=== PATIENT | female | born 1990 | race American Indian/Alaskan Native ===

== ENCOUNTER 2017-07-03 11:56 | Emergency (ER) | payer SELFPAY ==
[2017-07-03 12:21] VITALS: BP 113/64
[2017-07-03] MEDS ORDERED: MOTRIN PO ONE (14:27)
--- NOTE | 2017-07-03 19:23 | Emergency Department Report ---
Entered by EARLE SOLANO, acting as scribe for NGOC VUONG PAC. ED ENT HPI - General Chief complaint: Dental/Oral Stated complaint: LEFT JAW SWELLING Time Seen by Provider: 07/03/17 14:11 Source: patient Mode of arrival: Ambulatory Limitations: No Limitations - History of Present Illness Initial comments: 26 year old female with no significant PMHx presents to ED with c/o left sided jaw pain for 1 week, symptoms worsen this morning. Patient states she took Ibuprofen last night with relief, but symptoms were worse this morning. Patient states it feels like she chipped her tooth. Patient rates pain a 9/10 in severity and describes pain as tight. Patient reports swelling and chills, but denies left arm pain, numbness, tingling, fever, pus/drainage, difficulty breathing or tongue swelling. No cardiac or pulmonary symptoms per patient. Patient denies recent visit to the dentist. LMP: 06/02/17. NKDA. ROGERS complaint: tooth pain (left jaw pain), other -: week(s) (1) Location: other (left jaw, lower ) Severity: severe Severity scale (0 -10): 9 Quality: aching Consistency: constant Improves with: none Worsens with: position, movement Associated Symptoms: gum swelling, toothache. denies: fever, cough, pain with swallowing, sore throat, discharge from ear, rhinorrhea - Related Data Previous Rx's Medication Instructions Recorded Last Taken Type Amoxicillin/K Clav Tab [Augmentin 1 tab PO Q12HR #20 tab 07/03/17 Unknown Rx 875 mg] Ibuprofen [Motrin 800 MG tab] 800 mg PO Q8HR PRN #15 tablet 07/03/17 Unknown Rx Allergies Allergy/AdvReac Type Severity Reaction Status Date / Time No Known Allergies Allergy Unverified 07/03/17 12:21 ED Dental HPI - General Chief complaint: Dental/Oral Stated complaint: LEFT JAW SWELLING Source: patient Mode of arrival: Ambulatory Limitations: No Limitations - History of Present Illness complaint: tooth pain -: Gradual, week(s) Severity: moderate Quality: sharp Consistency: constant Improves with: NSAID Worsens with: none Context- Dental: history of dental caries, poor dental care - Related Data Previous Rx's Medication Instructions Recorded Last Taken Type Amoxicillin/K Clav Tab [Augmentin 1 tab PO Q12HR #20 tab 07/03/17 Unknown Rx 875 mg] Ibuprofen [Motrin 800 MG tab] 800 mg PO Q8HR PRN #15 tablet 07/03/17 Unknown Rx Allergies Allergy/AdvReac Type Severity Reaction Status Date / Time No Known Allergies Allergy Unverified 07/03/17 12:21 ED Review of Systems Comment: All other systems reviewed and negative Constitutional: denies: chills, fever, weakness Eyes: denies: eye pain, eye discharge, vision change ENT: dental pain. denies: ear pain, throat pain Respiratory: denies: cough, shortness of breath, wheezing Cardiovascular: denies: chest pain, palpitations Gastrointestinal: denies: abdominal pain, nausea, vomiting, diarrhea Musculoskeletal: denies: back pain, joint swelling, arthralgia Skin: denies: rash, lesions Neurological: denies: headache, weakness, numbness, paresthesias ED Past Medical Hx - Past Medical History Previous Medical History?: No - Surgical History Past Surgical History?: No - Social History Smoking Status: Never Smoker Substance Use Type: None - Medications Home Medications: Home Medications Medication Instructions Recorded Confirmed Last Taken Type Amoxicillin/K Clav Tab [Augmentin 1 tab PO Q12HR #20 tab 07/03/17 Unknown Rx 875 mg] Ibuprofen [Motrin 800 MG tab] 800 mg PO Q8HR PRN #15 tablet 07/03/17 Unknown Rx ED Physical Exam - General Limitations: No Limitations General appearance: alert, in no apparent distress - Head Head exam: Present: atraumatic, normocephalic - Eye Eye exam: Present: normal appearance Pupils: Present: normal accommodation. Absent: irregular - ENT ENT exam: Present: normal exam, normal orophraynx, mucous membranes moist - Expanded ENT Exam Expanded Mouth exam: Present: normal external inspection, tongue normal. Absent: drooling, trismus Teeth exam: Present: fractured tooth # (fractured first molar on the R and L), other (abscess to bottom left, 1st molar, no active oozing, pus, or drainage, patent airway) Throat exam: Positive: normal inspection. Negative: tonsillar erythema, tonsillomegaly - Neck Neck exam: Present: normal inspection, full ROM. Absent: tenderness, meningismus - Respiratory Respiratory exam: Present: normal lung sounds bilaterally. Absent: respiratory distress, wheezes, rales, rhonchi, stridor - Cardiovascular Cardiovascular Exam: Present: regular rate, normal rhythm, normal heart sounds. Absent: systolic murmur, diastolic murmur, rubs, gallop - GI/Abdominal GI/Abdominal exam: Present: soft, normal bowel sounds. Absent: distended, tenderness, guarding, rebound, rigid, diminished bowel sounds - Extremities Exam Extremities exam: Present: normal inspection, full ROM, normal capillary refill. Absent: tenderness, pedal edema, joint swelling - Back Exam Back exam: Present: normal inspection, full ROM. Absent: tenderness, paraspinal tenderness, vertebral tenderness - Neurological Exam Neurological exam: Present: alert, oriented X3 - Psychiatric Psychiatric exam: Present: normal affect, normal mood - Skin Skin exam: Present: warm, dry, intact, normal color. Absent: rash ED Course Vital Signs 07/03/17 12:19 Temperature 98 F Pulse Rate 61 Respiratory 18 Rate Blood Pressure 113/64 O2 Sat by Pulse 100 Oximetry ED Medical Decision Making - Medical Decision Making No chest pain, radiation of jaw pain, numbness, tingling, left sided arm or shoulder pain. No SOB or resp distress at this time. Pt was given Ibuprofen 800 mg for the pain at this time- denied . Pt will be discharged with anti-inflammatory and augmentin with referral to a dentist RIAN. ED Disposition Clinical Impression: Dental abscess Disposition: TO HOME OR SELFCARE Is pt being admited?: No Does the pt Need Aspirin: No Condition: Stable Instructions: Dental Abscess (ED), Toothache (ED) Additional Instructions: Please take the antibiotic exactly how it was prescribed. Please take the ibuporfen as needed. You may use compress to the face to help bring down the inflammation. You need to see a dentist within 3-5 days. If any acute worsening please return to the ED immediately- such as resp distress, increased , swelling pain, or SOB. Prescriptions: Amoxicillin/K Clav Tab [Augmentin 875 mg] 1 tab PO Q12HR #20 tab Ibuprofen [Motrin 800 MG tab] 800 mg PO Q8HR PRN #15 tablet PRN Reason: Pain Referrals: [facility] [Outside] - 3-5 Days [facility] [Outside] - 3-5 Days PRIMARY CARE,MD [Primary Care Provider] - 3-5 Days Forms: Work/School Release Form(ED) This documentation as recorded by the XIOMARA bush PEARL,accurately reflects the service I personally performed and the decisions made by ,NGOC VUONG , PAC.
--- NOTE | 2017-07-04 12:22 | Event Note ---
Date: 07/04/17 (RX REPRINTED. PT LOST THEM. AMOX AND MOTRIN)
== END 2017-07-03 14:43 | disposition home or self-care (01) ==
LOC: ED 11:56
DX: K04.7 Periapical abscess without sinus (principal)
CPT/HCPCS: 99282